=== PATIENT | male | born 2000 | race Caucasian/White ===

== ENCOUNTER 2022-06-20 15:25 | Emergency (ER) | payer OTHER, SELFPAY ==
[2022-06-20 15:29] VITALS: BP 145/87; PULSE 79; RESP 18; TEMP 36.8; O2SAT 99; BMI 17.8
--- NOTE | 2022-06-20 16:14 | ED_ITS ---
HPI - General Adult General Chief complaint: Unspecified Complaint, Adult Stated complaint: Rectal Bleeding Time Seen by Provider: 06/20/22 15:34 Source: patient History of Present Illness HPI narrative: Patient is a 21-year-old male [employer] student who presents with rectal pain and bleeding which he says is been worsening for the past 3-4 weeks. He is not aware of any perianal masses. He says that the rectal pain has been keeping him up at night the past few days although he has not tried taking anything such as ibuprofen or Tylenol. He occasionally has some constipation although it is not significant. He has a bowel movement most days. He notes blood streaked around the stool. Occasionally he has some looser stools with a little blood mixed in. He is not aware of any prior history of hemorrhoids. He does not have a history of inflammatory bowel disease. He did look up anal fissure and wonders if that is the problem. He has not had any abdominal pain or fevers. Of note, he has sex with men, he says that about 5 weeks ago he had anal sex for the 1st time, prior to that he had had digital penetration only. He says that he had sex with someone 1 time, that person did not a condom. He does say that the sex was consensual though not was someone that he knows well. He did not have significant pain during sex, but about a week or so after sex he says it started to feel strange, he thought maybe that was normal but since then the pain has gotten worse and worse. He has been tested for STDs last earlier this year and was negative. Has not had any dysuria or penile discharge, no rashes, would be interested in STD testing at this time. Related Data Home Medications Medication Instructions Recorded Confirmed escitalopram oxalate 10 mg tablet 10 mg PO DAILY 06/20/22 06/20/22 fungal pill 06/20/22 hiv prevention 06/20/22 Allergies Allergy/AdvReac Type Severity Reaction Status Date / Time No Known Drug Allergies Allergy Verified 06/20/22 15:34 Review of Systems Status of ROS: Reports: 6 or more systems reviewed and unremarkable except as noted in History and below PFSH PFS Social History Smoking Status: Never smoker How often do you have a drink containing alcohol: 2-4 times a month AUDIT-C Alcohol total score: 2 Non-prescribed substance use: denies use Exam Narrative: Exam Narrative: Vital signs as noted above. In general, an alert, well-appearing patient. Head: Normocephalic, atraumatic. Eyes: Pupils are equal reactive. Extraocular movements are full. Conjunctivae are normal. Neck: Supple without lymphadenopathy. Heart: Regular rate and rhythm. No murmur or rub. Lungs: Clear bilaterally. No increased work of breathing, crackles or wheezes. Abdomen: Soft and nontender. No organomegaly. Rectal: Normal externally, no fissure or hemorrhoids. Digital rectal exam shows no masses. Stool is light brown, no visible blood, heme positive on guaiac testing. Extremities: Well perfused. No edema. No calf tenderness. Pulses intact. Neurologic: Patient is alert and oriented to person and place. Speech is fluent. Face is symmetric. Moves all extremities equally. Affect: Normal. Skin: Warm and dry. Well perfused. Const: Vital Signs, click to edit/add: Vital Signs - 24 hr 06/20/22 15:29 Temperature 98.3 F Pulse Rate [Pulse Oximeter] 79 Respiratory Rate 18 Blood Pressure [Ri ght Upper Arm] 145/87 H Pulse Oximetry 99 Oxygen Delivery Me thod Room Air Documenting provider has reviewed patient's vital signs: yes Course Course Hospital Course: I am sending a rectal swab for GC and chlamydia, I have ordered syphilis and HIV testing and have discussed with him that these will not return today so we will call him with results. I am treating with Rocephin and doxycycline for likely proctitis. I do not see evidence of fissure or external hemorrhoids, internal hemorrhoids are possibility but I think less likely given his story of recent receptive anal intercourse without condom use. He does not have abdominal pain or history of inflammatory bowel disease. If the symptoms do not improve with antibiotics he should have further evaluation in consideration of this diagnosis as well. Return for increased bleeding, new symptoms such as abdominal pain, fever, vomiting. CBC today shows hemoglobin of 14.6. Vital Signs Vital signs: Initial Vital Signs Temperature 98.3 F 06/20/22 15:29 Temperature Source Temporal Artery Scan 06/20/22 15:29 Pulse Rate 79 06/20/22 15:29 Respiratory Rate 18 06/20/22 15:29 Blood Pressure 145/87 H 11/13/22 15:29 Blood Pressure Mean 106 06/20/22 15:29 Blood Pressure Position Supine 06/20/22 15:29 Pulse Oximetry 99 06/20/22 15:29 Oxygen Delivery Method 06/20/22 15:29 Vital Signs Temperature 98.3 F 06/20/22 15:29 Pulse Rate 79 06/20/22 15:29 Respiratory Rate 18 06/20/22 15:29 Blood Pressure 145/87 H 06/20/22 15:29 Pulse Oximetry 99 06/20/22 15:29 Oxygen Delivery Method 06/20/22 15:29 Temperature 98.3 F 06/20/22 15:29 Pulse Rate 79 06/20/22 15:29 Respiratory Rate 18 06/20/22 15:29 Blood Pressure 145/87 H 06/20/22 15:29 Pulse Oximetry 99 06/20/22 15:29 Oxygen Delivery Method 06/20/22 15:29 Medical Decision Making Lab Data Labs: Lab Results 06/20/22 06/20/22 Range/Units 16:23 16:23 WBC 5.70 (4.50-11.00) K/uL RBC 5.09 (4.30-5.90) m/uL Hgb 14.6 (13.5-17.5) gm/dL Hct 41.9 (37.0-53.0) % MCV 82 (80-100) fL MCH 29 (26-34) pg MCHC 35 (32-36) gm/dL RDW Coeff of [place]zia 12.8 (11.5-15.5) % Plt Count 159 (140-440) K/uL Neut % (Auto) 42.2 (42.0-72.0) % Lymph % (Auto) 45.1 H (20-44) % [place] % (Auto) 10.4 (0.0-11.0) % Eos % (Auto) 0.9 (0.0-7.0) % Baso % (Auto) 0.7 (0.0-3.0) % Neut # (Auto) 2.41 (1.7-7.0) K/uL Lymph # (Auto) 2.60 (0.90-2.90) K/uL [place] # (Auto) 0.60 (0.00-0.90) K/UL Eos # (Auto) 0.05 (0.00-0.50) K/uL Baso # (Auto) 0.04 (0.00-0.30) K/uL Abs Immat Gran (auto) 0.04 (0.00-0.30) K/uL Imm/Tot Granulo (auto) 0.7 % Diff Slide Review Acceptable Review (Acceptable) HIV-1 Antibody Cancelled HIV-1 Ab Interpret Cancelled HIV-1 Qnt NAAT copies/mL Cancelled HIV-1 Qnt NAAT log copies/mL Cancelled HIV-1 Qnt NAAT Interp Cancelled HIV-2 Antibody Cancelled HIV 1&2 Ab Differentiat Cancelled Discharge Plan Discharge Clinical Impression: Acute proctitis Patient Disposition: Home, Self-Care Condition: Stable Instructions: Proctitis (ED) Additional Instructions: Ibuprofen or Tylenol as needed for pain. Antibiotics as prescribed. If you have worsening pain, new symptoms such as abdominal pain, fever, vomiting or more significant bleeding, return at any time to the emergency department. If symptoms persist despite treatment, you should be seen by primary care for additional evaluation. Prescriptions: No Action escitalopram oxalate 10 mg tablet 10 mg PO DAILY fungal pill hiv prevention Stand Alone Forms: [employer] Info Instructions
[2022-06-20] MEDS: LIDOCAINE 1% 5 ml (pf) 5 ML VIAL 0.9 ML IM (16:29)
[2022-06-20] MEDS: cefTRIAXone 250 MG VIAL IM (16:29)
[2022-06-20 16:35] LABS: Basophils Absolute Auto 0.04 K/uL (0.00-0.30); Basophils Percent Auto 0.7 % (0.0-3.0); Eosinophils Absolute Auto 0.05 K/uL (0.00-0.50); Eosinophils Percent Auto 0.9 % (0.0-7.0); Hematocrit 41.9 % (37.0-53.0); Hemoglobin* 14.6 gm/dL (13.5-17.5); Immature Granulocytes Abs Auto 0.04 K/uL (0.00-0.30); Immature Granulocytes Pct Auto 0.7 %; Lymphocytes Percent Auto 45.1 % (20-44); Mean Corpuscular HGB Conc 35 gm/dL (32-36); Mean Corpuscular Hemoglobin 29 pg (26-34); Mean Corpuscular Volume 82 fL (80-100); Monocytes Percent Auto 10.4 % (0.0-11.0); Neutrophils Absolute Auto 2.41 K/uL (1.7-7.0); Neutrophils Percent Auto 42.2 % (42.0-72.0); Platelet Count* 159 K/uL (140-440); RDW Coefficient of Variation % 12.8 % (11.5-15.5); Red Blood Count 5.09 m/uL (4.30-5.90)
[2022-06-20 16:55] LABS: Slide Review Reflex Yes
[2022-06-20 16:56] LABS: Slide Review Acceptable Review (Acceptable)
[2022-06-20 18:02] LABS: Chlamydia DNA Amplified* NOT DETECTED (No Detected); GC DNA Amplified* NOT DETECTED (No Detected)
[2022-06-20 18:13] LABS: HIV 1/2/P24 Combo Screen* Negative (Negative)
[2022-06-22 11:45] LABS: Rapid Plasma Reagin (RPR) Non Reactive (Non Reactive)
== END 2022-06-20 17:06 | disposition home or self-care (01) ==
PROVIDERS: Emergency Provider Emergency Medicine
DX: K62.89 Other specified diseases of anus and rectum (principal)
CPT/HCPCS: 36415; 85025; 86592; 86701; 86702; 86703; 87491; 87536; 87591; 96372; 99283; 99284; J0696